=== PATIENT | male | born 2000 | race Asian ===

== ENCOUNTER 2023-11-14 05:49 | Emergency (ER) | payer OTHER, SELFPAY ==
[2023-11-14 05:52] VITALS: BP 138/92
--- NOTE | 2023-11-14 06:14 | ED.GENMED ---
History of Present Illness
General
Chief Complaint: Urinary Symptoms
Source: patient
Exam Limitations: none
Time Seen by Provider: 11/14/23 06:07
Nursing documentation reviewed up to this point in time: agreed with
Travel History
Have you had any contact with someone who has COVID-19?: No
Do you have any symptoms of coronavirus? Fever > 100 degrees, chills, cough, shortness of breath, sore throat, loss of taste or smell, muscle aches, or headache?: No
History of Present Illness
History of Present Illness:
Patient is a 23-year-old male who presents to the emergency department having difficulty urinating. Patient awoke at around 1 AM with difficulty urinating and feeling pressure in his bladder. Patient denies any hematuria, dysuria, discharge.
Patient has a family history of kidney stones. Patient called his parents who told him to drink a lot of water. Patient drank 4 large glasses of water and still cannot urinate more than small amount. Patient denies any back or abdominal pain.
Patient denies fever or chills. Patient denies any nausea, vomiting or diarrhea. Patient denies any previous history of similar episodes.
Past History
Past History
ED Past Medical History: None
ED Past Surgical History: None
Social History
Tobacco: Non-smoker
Review of Systems
Review of Systems
All Other Systems: ROS reviewed and negative except as documented in HPI and ROS
Constitutional: Reports no symptoms
EENT: Reports no symptoms
Respiratory: Reports no symptoms
Cardiac: Reports no symptoms
ABD/GI: Reports no symptoms
: Reports difficulty voiding; Denies dysuria, flank pain, bleeding or discharge
Musculoskeletal: Denies back pain
Skin: Reports no symptoms
Neurological: Reports no symptoms
Hematologic/Lymphatic: Reports no symptoms
Phy Exam
Physical Exam
Physical Exam:
Physical Exam
General: No apparent distress, alert and appropriate, well nourished, well hydrated
HENT: Normocephalic, supple with no lymphadenopathy, no thyromegaly
Eyes: Clear sclera, conjuctiva without injection
Heart: Regular rhythm and rate. No S3, S4. No murmur.
Lungs: No respiratory distress, no stridor, lung sounds clear and equal bilaterally
Abdomen: Soft, nontender, no organomegaly, no CVA tenderness, BS good. Uncircumcised penis without lesion of the urethral meatus or the prepuce
Neuro: Alert and oriented x 3, CN II - XII intact, no motor focality, no cerebellar dysfunction
Skin: no rash
Psychiatric: well kept. interactive and cooperative
Extremities: No edema, cyanosis, tenderness
Scores
Heart Failure Risk
Heart Failure Risk Score: Not Applicable
Heart Score for Chest Pain Patients
STEMI patient?: Not applicable
Withdrawal Assessment of Alcohol
Withdrawal Assessment Completed?: Not applicable
Course
Orders/Labs/Results
Orders:
Orders
11/14/23 06:13
0.9% Sodium Chloride 1000 ml [Nss] 1,000 ml IV BOLUS
11/14/23 06:14
CT Abd/pel Without Iv Or Oral Urgent
Comment:
Reason For Exam: fam hx of kid stones difficulty urinating
11/14/23 06:16
Urinalysis Reflex To Culture Urgent
Date Specimen was Collected: 11/14/23
Time Specimen was Collected: 06:15
Urine Microscopic Reflex Cult Urgent
11/14/23 06:21
Complete Blood Count/With Diff Urgent
Comprehensive Metabolic Panel Urgent
Abnormal Lab Results
11/14/23 11/14/23
06:16 06:21
WBC 11.2 H 10^3/uL
(4.8-10.8)
MCV 94.3 H fL
(80.0-94.0)
MCH 32.2 H pg
(27.0-31.0)
MPV 10.6 H fL
(7.4-10.4)
Absolute Neuts (auto) 7.3 H 10^3/uL
(1.4-6.5)
Absolute Monos (auto) 0.7 H 10^3/uL
(0.1-0.6)
Carbon Dioxide 21 L mmol/L
(22-30)
Glucose 103 H mg/dl
(70-99)
Urine Ketones 1+ A
(Negative)
Ur Occult Blood Reflex 2+ A
(Negative)
Urine Bilirubin 1+ A
(Negative)
Urine RBC 7-10 A /HPF
(0-2)
11/14/23 06:21
11/14/23 06:21
Vital Signs
Initial and Last Documented VS:
Initial Vital Signs
Temp Pulse Resp BP Pulse Ox
97.6 F 78 14 138/92 98
11/14/23 05:52 11/14/23 05:52 11/14/23 05:52 11/14/23 05:52 11/14/23 05:52
Last Documented Vital Signs
Temp Pulse Resp BP Pulse Ox
97.6 F 82 16 115/81 99
11/14/23 07:12 11/14/23 07:12 11/14/23 07:12 11/14/23 07:12 11/14/23 07:12
*Radiology
Radiology exam reviewed: radiology read reviewed (2mm left uvj stonewith mild hydro)
*Pulse Oximetry
Patient hypoxic: no
*EKG
Interpreted by ED Provider?: NA
*Assistant Professor Of Religion Interpretation
Rate: Assistant Professor Of Religion- N/A
*Critical Care Note
Total Time (30-74mins, 75-104mins- exclusive of procedures): Not Applicable
ED Attending Note
-
Portions of this chart may have been created with voice recognition software.� Occasional wrong word or��sound alike� substitutions may have occurred due to the inherent limitations of voice recognition software.
Discharge Plan
Departure
Patient Disposition: Home (Routine Discharge)
Date of Disposition: 11/14/23
Time of Disposition: 07:52
Patient with high blood pressure during this ER visit?: No
Condition: Good
Covid-19: Not Applicable
Discharge Problem:
Ureterolithiasis
Instructions: Kidney Stones (DC), How to Strain Your Urine
Prescriptions:
New
ketorolac 10 mg tablet
10 mg PO QID PRN (Reason: pain) Qty: 20 0RF
tamsulosin [Flomax] 0.4 mg capsule
0.4 mg PO HS Qty: 7 0RF
Referrals:
Sen Lepe MD [Active] - Call in 1-3 days for appt
Interventions
Interventions:
*Risk Screen - Suicide Last Done: 11/14/23 05:52
*General Assessment Last Done: 11/14/23 05:52
*Neglect/Abuse Screening Last Done: 11/14/23 05:52
ED- Fall Risk Assessment Last Done: 11/14/23 06:28
*ED COVID-19 Vaccine History Last Done: 11/14/23 06:15
ED-Male Genitourinary Assessment Last Done: 11/14/23 06:28
Discharge Date and Time
Print Language: FRENCH
[2023-11-14 06:15] VITALS: BMI 19.4
[2023-11-14] MEDS: NSS 1000 IV (06:22)
--- NOTE | 2023-11-14 06:29 | EDRN ---
Pt woke around 0100 with pain 'in my urethral canal' and is concerned he has a kidney stone. No personal hx of kidney stones however he has a family hx. Pt says he drank a lot of water and his urine is still yellow. Pt notes burning with
urination, no blood. Pt denies flank pain, abd pain, n/v/d/constipation, fever/chills/cough, cp, sob, discharge.
[2023-11-14 06:35] LABS: % Basophils 0.4 % (0-2); % Eosinophils 2.2 % (0-6); % Immature Granulocytes 0.2 % (0-0.5); % Lymphocytes 25.5 % (20.5-51.1); % Monocytes 6.6 % (1.7-9.3); % Neutrophils 65.1 % (42.2-75.2); Absolute Eosinophils 0.3 10^3/uL (0-0.7); Absolute Lymphocytes 2.9 10^3/uL (1.2-3.4); Absolute Monocytes 0.7 10^3/uL (0.1-0.6); Absolute Neutrophils 7.3 10^3/uL (1.4-6.5); Hemoglobin 15.7 g/dL (13.0-18.0); Mean Corp Hgb Conc. 34.1 g/dL (33.0-37.0); Mean Corpuscular Hgb 32.2 pg (27.0-31.0); Mean Corpuscular Volume 94.3 fL (80.0-94.0); Mean Platelet Volume 10.6 fL (7.4-10.4); Nucleated Red Blood Cells % 0 % (-); Platelet Count 224 10^3/uL (130-400); Red Blood Cell Count 4.88 10^6/uL (4.70-6.10); Red Cell Dist. Width 12.4 % (11.5-14.5); White Blood Cell Count 11.2 10^3/uL (4.8-10.8)
[2023-11-14 06:49] LABS: Urine Albumin Trace (Neg - Trace); Urine Bilirubin 1+ (Negative); Urine Character Clear (Clear); Urine Color Yellow; Urine Glucose Negative (Negative); Urine Ketone 1+ (Negative); Urine Leukocyte Negative (Negative); Urine Nitrite Negative (Negative); Urine Occult Blood 2+ (Negative); Urine Urobilinogen Negative (Neg - 1+)
[2023-11-14 06:50] LABS: ALT (SGPT) 23 U/L (0-50); AST (SGOT) 25 U/L (17-59); Albumin 4.9 g/dl (3.5-5.0); Alkaline Phosphatase 90 U/L (38-126); Blood Urea Nitrogen 20 mg/dl (9-20); Calcium 10.2 mg/dl (8.4-10.2); Carbon Dioxide 21 mmol/L (22-30); Chloride 103 mmol/L (98-107); Estimated Creatinine Clearance 122 ml/min; Glucose 103 mg/dl (70-99); Potassium 3.6 mmol/L (3.5-5.1); Sodium 137 mmol/L (135-145); Total Bilirubin 0.9 mg/dl (0.2-1.3); Total Protein 7.6 g/dl (6.3-8.2); eGFR > 60.00
--- NOTE | 2023-11-14 07:09 | EDRN ---
this RN received the pt from the previous lieutenant shift supervisor RN, this RN entered the pts room to check on the pt and the pt is resting in stretcher in the lowest position, side rails up x1, HOB elevated, call m[place]o within reach, no s/s of distress, VS WNL,
the pt denies needing anything at this time, awaiting for the provider to speak with the pt again, will continue to monitor the pt closely
[2023-11-14 07:12] VITALS: BP 115/81
[2023-11-14 07:20] LABS: Urine Mucus Moderate
[2023-11-14 07:22] LABS: Urine Amorphous Seen; Urine White Cell 0-2 /HPF (0-5)
[2023-11-14 08:02] VITALS: BP 126/75
== END 2023-11-14 08:13 | disposition home or self-care (01) ==
LOC: EMR 05:49
PROVIDERS: EMERGENCY PHYSICIAN Emergency Medicine
DX: N20.1 Calculus of ureter (principal)
CPT/HCPCS: 99284; 96360; 74176; 80053; 81003; 81015; 85025